=== PATIENT | male | born 1935 | race Caucasian/White ===

== ENCOUNTER → 2019-02-03 | Outpatient (CLI) | payer OTHER | LOC: SUPIMAGING 13:51 | PROVIDERS: ATTEND Registered Nurse | DX: R05 Cough (principal); I51.7 Cardiomegaly | CPT/HCPCS: 71046-PN ==

== ENCOUNTER 2019-02-09 10:23 | Inpatient (IN) | payer OTHER ==
[2019-02-09] MEDS ORDERED: NS 500 ML IV ONE (10:47)
--- NOTE | 2019-02-09 10:54 | EDPHY ---
H & P Stated Complaint: Irr HR x1wk, SOB, palps, lightheaded, cardiac Hx, sleeping upright Time Seen by Provider: 02/09/19 10:35 HPI/ROS: CHIEF COMPLAINT: Chest pounding HISTORY OF PRESENT ILLNESS: The patient is an 83-year-old man who comes to the emergency department complaining of about 1 week of chest pounding, shortness of breath and anxiety. He has a history of 4 vessel bypass in the 70s but no intervention since then. He initially denied history of atrial fibrillation but on chart review he had an episode in 2009 of atrial fibrillation and was cardioverted. He was on Coumadin for 4 weeks afterwards but was not on a long- term because he has not had any episodes of atrial fibrillation since then and has a history of chronic nose bleeds. He does report a history of frequent PVCs. No GI symptoms today. He does feel occasionally lightheaded. He also reports that he had a cough and cold last week and went to an urgent care over the weekend and was given a course of azithromycin and that this is when he felt like his chest pounding began. Severity: Moderate Modifying factors: None REVIEW OF SYSTEMS: Constitutional: denies: chills, fever, recent illness, recent injury EENTM: denies: blurred vision, double vision, nose congestion Respiratory: denies: cough, shortness of breath Cardiac: denies: chest pain, irregular heart rate, lightheadedness, palpitations Gastrointestinal/Abdominal: denies: abdominal pain, diarrhea, nausea, vomiting, blood streaked stools Genitourinary: denies: dysuria, frequency, hematuria, pain Musculoskeletal: denies: joint pain, muscle pain Skin: denies: lesions, rash, jaundice, bruising Neurological: denies: headache, numbness, paresthesia, tingling, dizziness, weakness Hematologic/Lymphatic: denies: blood clots, easy bleeding, easy bruising Immunologic/allergic: denies: HIV/AIDS, transplant 10 systems reviewed and negative except as noted EXAM: GENERAL: Well-appearing, well-nourished and in no acute distress. HEAD: Atraumatic, normocephalic. EYES: Pupils equal round and reactive to light, extraocular movements intact, sclera anicteric, conjunctiva are normal. ENT: TMs normal, nares patent, oropharynx clear without exudates. Moist mucous membranes. NECK: Normal range of motion, supple without lymphadenopathy or JVD. LUNGS: Breath sounds clear to auscultation bilaterally and equal. No wheezes rales or rhonchi. HEART: Irregular ABDOMEN: Soft, nontender, normoactive bowel sounds. No guarding, no rebound. No masses appreciated. BACK: No CVA tenderness, no spinal tenderness, step-offs or deformities EXTREMITIES: Normal range of motion, no pitting or edema. No clubbing or cyanosis. NEUROLOGICAL: Cranial nerves II through XII grossly intact. Normal speech, normal gait. 5/5 strength, normal movement in all extremities, normal sensation , normal reflexes PSYCH: Normal mood, normal affect. SKIN: Warm, dry, normal turgor, no visible rashes or lesions. Source: Patient, Family Exam Limitations: No limitations - Personal History Current Tetanus/Diphtheria Vaccine: Yes - Medical/Surgical History Hx Asthma: No Hx Chronic Respiratory Disease: No Hx Diabetes: No Hx Cardiac Disease: Yes Hx Renal Disease: No Hx Cirrhosis: No Hx Alcoholism: No Hx HIV/AIDS: No Hx Splenectomy or Spleen Trauma: No Other PMH: 2xMI, Bypass, no stents, R hip repl, - Family History Significant Family History: No pertinent family hx - Social History Smoking Status: Former smoker Alcohol Use: Sober Drug Use: None Constitutional: Initial Vital Signs Temperature (C) 36.5 C 02/09/19 10:30 Heart Rate 87 02/09/19 10:30 Respiratory Rate 18 02/09/19 10:30 Blood Pressure 146/85 H 02/09/19 10:30 O2 Sat (%) 97 02/09/19 10:30 O2 Delivery Mode Room Air Allergies/Adverse Reactions: Penicillins Allergy (Severe, Verified 02/09/19 11:49) Rash tetracycline [Tetracycline] Allergy (Mild, Verified 02/09/19 11:49) Rash pseudoephedrine [Pseudoephedrine] Allergy (Unknown, Verified 02/09/19 11:49) Other-Enter Comments cefuroxime axetil [From Ceftin] Allergy (Verified 02/09/19 11:49) Other-Enter Comments dextromethorphan [From Delsym] Allergy (Verified 02/09/19 11:50) Other-Enter Comments tramadol HCl [From Ultram] Allergy (Verified 02/09/19 11:49) Other-Enter Comments ZPACK Allergy (Uncoded 02/09/19 11:50) Other-Enter Comments Home Medications: Medication Instructions Recorded Allopurinol [Allopurinol 300 MG 300 mg PO DAILY 02/04/10 (RX)] Aspirin [Aspirin 81mg (*)] 81 mg PO DAILY 02/04/10 Herbals/Supplements -Info Only 1 ea PO DAILY 02/09/19 Losartan Potassium 100 mg PO DAILY18 02/09/19 Psyllium Husk (with Sugar) 1 - 2 each PO DAILY 02/09/19 [Metamucil Packet] Apixaban [Eliquis] 5 mg PO BID #60 tab 02/10/19 Atorvastatin Calcium [Lipitor 20 20 mg PO DAILY #30 tab 02/10/19 mg (*)] Medical Decision Making - Diagnostics EKG Interpretation: An EKG obtained and was read and documented in trace view. Please see trace view for full reading and report. 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 discussed the case with Dr. Banks who will admit. Patient on heparin. Will perform CT angio because of the slightly elevated D-dimer although his symptoms are more likely due to his atrial fibrillation. Differential Diagnosis: Partial list of the Differential diagnosis considered include but were not limited to; atrial fibrillation, frequent PVCs, and although unlikely based on the history and physical exam, I also considered acute coronary disease, pneumonia, pneumothorax, dissection, aneurysm. - Data Points Laboratory Results: Laboratory Results 02/09/19 10:56 02/09/19 10:56 Medications Given: Discontinued Medications Allopurinol (Allopurinol) 300 mg PO DAILY [facility] Stop: 08/09/19 08:59 Last Admin: 02/10/19 10:21 Dose: 300 mg Apixaban (Eliquis) 5 mg PO BID RNADAL Stop: 08/09/19 10:29 Last Admin: 02/10/19 11:17 Dose: 5 mg Aspirin (Aspirin) 81 mg PO DAILY [facility] Stop: 08/09/19 08:59 Last Admin: 02/10/19 10:21 Dose: 81 mg Atorvastatin Calcium (Lipitor) 20 mg PO DAILY [facility] Stop: 08/09/19 08:59 Last Admin: 02/10/19 10:21 Dose: 20 mg Heparin Sodium (Porcine) (Heparin Injection) 0 unit IVP EDNOW ONE Stop: 02/09/19 11:24 Last Admin: 02/09/19 12:14 Dose: 6,600 units Sodium Chloride (Ns) 500 mls @ 0 mls/hr IV EDNOW ONE; Wide Open PRN Reason: Protocol Stop: 02/09/19 10:48 Last Admin: 02/09/19 10:53 Dose: 500 mls Heparin Sodium (Porcine) (Heparin 50 Units/Ml (Premix)) 500 mls @ 0 mls/hr IV EDNOW ONE; Per Protocol PRN Reason: Protocol Stop: 02/09/19 11:24 Last Admin: 02/09/19 12:21 Dose: 500 mls Heparin Sodium (Porcine) (Heparin 50 Units/Ml (Premix)) 500 mls @ 0 mls/hr IV CONT RANDAL; Per Protocol PRN Reason: Protocol Stop: 08/08/19 19:59 Last Admin: 02/10/19 06:20 Dose: 500 mls Losartan Potassium (Cozaar) 100 mg PO DAILY@1800 [facility] Stop: 08/08/19 17:59 Last Admin: 02/09/19 18:46 Dose: 100 mg Psyllium Hydrophilic Mucilloid (Metamucil/Konsyl) 1 each PO DAILY [facility] Stop: 08/09/19 08:59 Last Admin: 02/10/19 10:22 Dose: 1 each Point of Care Test Results: Chemistry 02/09/19 10:52 POC Troponin I 0.05 ng/mL ng/mL (0.00-0.08) Departure - Departure Disposition: [facility] Acute Clinical Impression: Premature supraventricular beat Atrial fibrillation Qualifiers: Atrial fibrillation type: unspecified Qualified Code(s): I48.91 - Unspecified atrial fibrillation Condition: Serious
--- NOTE | 2019-02-09 10:55 | CPEKG ---
Test Reason : OPEN Blood Pressure : / mmHG Vent. Rate : 098 BPM Atrial Rate : 119 BPM P-R Int : 043 ms QRS Dur : 124 ms QT Int : 406 ms P-R-T Axes : 000 -39 193 degrees QTc Int : 519 ms Atrial fibrillation Ventricular premature complex Left bundle branch block Confirmed by Glenn Cárdenas ([id number]) on 02/09/2019 10:54:31 AM Referred By: Glenn Cárdenas Confirmed By:Glenn Cárdenas
[2019-02-09 11:06] LABS: PLATELET COUNT 175 10^3/uL (150-400)
[2019-02-09 11:17] LABS: INR 1.08 (0.83-1.16); PROTIME(PATIENT) 13.6 SEC (12.0-15.0)
[2019-02-09] MEDS ORDERED: HEPARIN/DEXTROSE 500 ML IV ONE (11:23)
[2019-02-09] MEDS ORDERED: HEPARIN 10,000 UNIT/10 ML MDV (1,000 UNIT/ML) IVP ONE (11:23)
[2019-02-09] MEDS ORDERED: IOPAMIDOL (ISOVUE 370) 100 ML BTL IV ONE (12:01)
[2019-02-09] MEDS ORDERED: ONDANSETRON 4 MG/2 ML VIAL IVP PRN (12:04)
[2019-02-09] MEDS ORDERED: ACETAMINOPHEN 325 MG TAB PO PRN (12:04)
[2019-02-09] MEDS ORDERED: ONDANSETRON DISINTEGRATING 4 MG TAB PO PRN (12:04)
--- NOTE | 2019-02-09 14:50 | ASMTCMCOM ---
CM Note CM Note Notes: Chart reviewed. Patient admitted via ED with c/o chest pounding. CT negative for PE. Normally lives independent with his . Likely cardiac workup. Needs to be determined at this time. Plan: TBD Date Signed: 02/09/2019 02:49 PM Electronically Signed By:Catie Arriaga RN
--- NOTE | 2019-02-09 16:31 | PDGENHP ---
History and Physical - Chief Complaint Palpitations, SOB, LH - History of Present Illness Nimesh Sandy is a 83 yo M with a PMHx of CAD s/p CABG in 1978, A Fib s/p DCCV in 2009, HTN, HD, T2DM, Gout who presents to [facility] for episodes of chest pounding , SOB, and LH. He reports that he within the past week he has had episode of feeling his heart pounding in his chest with associated SOB and LH. He denies any chest pain or discomfort. He notes that this sensation makes it hard for him to sleep and has been making him anxious. He recently had a URI for which he was prescribed Azithromycin and Delsym which resolved his URI and finished 4 days ago. He denies any n/v, d/c, f/c, edema, falls, LOC. History Information - Allergies/Home Medication List Allergies/Adverse Reactions: Penicillins Allergy (Severe, Verified 02/09/19 11:49) Rash tetracycline [Tetracycline] Allergy (Mild, Verified 02/09/19 11:49) Rash pseudoephedrine [Pseudoephedrine] Allergy (Unknown, Verified 02/09/19 11:49) Other-Enter Comments cefuroxime axetil [From Ceftin] Allergy (Verified 02/09/19 11:49) Other-Enter Comments dextromethorphan [From Delsym] Allergy (Verified 02/09/19 11:50) Other-Enter Comments tramadol HCl [From Ultram] Allergy (Verified 02/09/19 11:49) Other-Enter Comments ZPACK Allergy (Uncoded 02/09/19 11:50) Other-Enter Comments Home Medications: Allopurinol [Allopurinol 300 MG (RX)] 300 mg PO DAILY 02/04/10 [Last Taken 02/08] Aspirin [Aspirin 81mg (*)] 81 mg PO DAILY 02/04/10 [Last Taken 02/08/19] Simvastatin [Zocor] 40 mg PO DAILY18 02/04/10 [Last Taken 02/08/19] Herbals/Supplements -Info Only 1 ea PO DAILY 02/09/19 [Last Taken Unknown] Losartan Potassium 100 mg PO DAILY18 02/09/19 [Last Taken 02/08/19] Psyllium Husk (with Sugar) [Metamucil Packet] 1 - 2 each PO DAILY 02/09/19 [ Last Taken 02/08/19] I have personally reviewed and updated: family history, medical history, social history, surgical history - Past Medical History coronary artery disease, diabetes type 2, hypertension, hyperlipidemia - Surgical History Reports: coronary bypass surgery - Family History Positive for: non-pertinent - Social History Smoking Status: Former smoker Alcohol Use: Sober Drug Use: None Review of Systems Review of Systems: ROS: 10pt was reviewed & negative except for what was stated in HPI & below Physical Exam Physical Exam: Temp Pulse Resp BP Pulse Ox 36.8 C 75 18 130/79 H 95 02/09/19 16:00 02/09/19 16:00 02/09/19 16:00 02/09/19 16:00 02/09/19 16:00 Constitutional: no apparent distress Eyes: PERRL Ears, Nose, Mouth, Throat: moist mucous membranes Cardiovascular: irregularly irregular, No tachycardia, No edema Respiratory: no respiratory distress, clear to auscultation Gastrointestinal: soft, non-tender abdomen Skin: warm Musculoskeletal: full muscle strength Neurologic: AAOx3 Psychiatric: interacting appropriately Lab Data & Imaging Review 02/09/19 10:56 02/09/19 10:56 WBC 6.53 10^3/uL (3.80-9.50) 02/09/19 10:56 RBC 4.72 10^6/uL (4.40-6.38) 02/09/19 10:56 Hgb 15.3 g/dL (13.7-17.5) 02/09/19 10:56 Hct 44.7 % (40.0-51.0) 02/09/19 10:56 MCV 94.7 fL (81.5-99.8) 02/09/19 10:56 MCH 32.4 pg (27.9-34.1) 02/09/19 10:56 MCHC 34.2 g/dL (32.4-36.7) 02/09/19 10:56 RDW 13.8 % (11.5-15.2) 02/09/19 10:56 Plt Count 175 10^3/uL (150-400) 02/09/19 10:56 MPV 9.7 fL (8.7-11.7) 02/09/19 10:56 Neut % (Auto) 62.9 % (39.3-74.2) 02/09/19 10:56 Lymph % (Auto) 25.6 % (15.0-45.0) 02/09/19 10:56 [place] % (Auto) 9.0 % (4.5-13.0) 02/09/19 10:56 Eos % (Auto) 1.1 % (0.6-7.6) 02/09/19 10:56 Baso % (Auto) 0.9 % (0.3-1.7) 02/09/19 10:56 Nucleat RBC Rel Count 0.0 % (0.0-0.2) 02/09/19 10:56 Absolute Neuts (auto) 4.11 10^3/uL (1.70-6.50) 02/09/19 10:56 Absolute Lymphs (auto) 1.67 10^3/uL (1.00-3.00) 02/09/19 10:56 Absolute Monos (auto) 0.59 10^3/uL (0.30-0.80) 02/09/19 10:56 Absolute Eos (auto) 0.07 10^3/uL (0.03-0.40) 02/09/19 10:56 Absolute Basos (auto) 0.06 10^3/uL (0.02-0.10) 02/09/19 10:56 Absolute Nucleated RBC 0.00 10^3/uL (0-0.01) 02/09/19 10:56 Immature Gran % 0.5 % (0.0-1.1) 02/09/19 10:56 Immature Gran # 0.03 10^3/uL (0.00-0.10) 02/09/19 10:56 PT 13.6 SEC (12.0-15.0) 02/09/19 10:56 INR 1.08 (0.83-1.16) 02/09/19 10:56 APTT 33.8 SEC (23.0-38.0) 02/09/19 10:56 D-Dimer 0.86 ug/mLFEU (0.00-0.50) H 02/09/19 10:56 Sodium 141 mEq/L (135-145) 02/09/19 10:56 Potassium 4.6 mEq/L (3.5-5.2) 02/09/19 10:56 Chloride 106 mEq/L (97-110) 02/09/19 10:56 Carbon Dioxide 25 mEq/l (22-31) 02/09/19 10:56 Anion Gap 10 mEq/L (6-14) 02/09/19 10:56 BUN 22 mg/dL (7-23) 02/09/19 10:56 Creatinine 1.2 mg/dL (0.7-1.3) 02/09/19 10:56 Estimated GFR 58 02/09/19 10:56 Glucose 138 mg/dL (70-100) H 02/09/19 10:56 Calcium 9.5 mg/dL (8.5-10.4) 02/09/19 10:56 POC Troponin I 0.05 ng/mL (0.00-0.08) 02/09/19 10:52 Assessment & Plan Assessment: Atrial fibrillation (Acute) - Presents with chest pounding, SOB, LH - EKG on admission showing A Fib with multiple PVCs, HR 70-80's - Has hx of A Fib, s/p DCCV in 2009 was on Coumadin for 1 month, unsure when/ why taken off, does have hx of epistaxis during dry lala - Cardiology consulted on admission, recommend continued ischemic w/u with serial Troponin, TTE, and EP evaluation in the AM - Continue to monitor on telemetry - CHADsVASC is 5, started on Heparin gtt in the ED, will continue overnight to evaluate for bleeding, if none seen, transition to PO AC tomorrow - Also had CTA Chest to r/o PE which was negative given elevated D Dimer on admission Premature supraventricular beat (Acute) - Cardiology/EP consult as above HTN - Continue home Losartan Gout - Continue home Allopurinol CAD s/p CABG - Continue home ASA, Statin FEN: Cardiac Code: FULL DVT PPx: Heparin gtt Dispo: Admit to Observation
--- NOTE | 2019-02-09 16:53 | ECHO ---
[email or web address] [address] [address] Main: [phone] Echocardiography Examination Transthoracic Name: CHRIS MAURICIO MR#: [id number] Study Date: 02/09/2019 Study Time: 02:10 PM Date of : 1935 Age: 83 year(s) Height: 175.3 cm (69 in.) Weight: 84.82 kg (187 lb.) BSA: 2.01 m2 Gender: Male Examination: Echo Contrast: Image Quality: Adequate Rhythm: Heart Rate: 41 bpm BP: 158 mmHg/97 mmHg Indication: abnormal CTA chest with cardiomegaly Procedure Staff Referring Physician: Food Technology Teacher: Radha Domingo [facility] Reading Physician: Cristhian Flores MD Requesting Provider: Ordering Physician: Miguel Massey Indication: abnormal CTA chest with cardiomegaly Measurements Chambers AV/MV Label Value Normal Value Label Value Normal Value LVOT Vmax 0.64 m/s (0.7m/s - 1.1m/s) AR PHT 0.59 s LVOTd 2.5 cm (1.9cm - 2.1cm) AR PHT 592 ms LVDd, 2D 6.1 cm (4.2cm - 5.9cm) AR Vmax 3.76 m/s LVDs, 2D 5.4 cm (2.1cm - 4cm) AV PGmax 6 mmHg IVSd, 2D 1.5 cm (0.6cm - 1.1cm) AV Vmax 1.23 m/s LVPWd, 2D 0.9 cm (0.6cm - 1cm) GAMAL (Vmax) 2.6 cm2 LVEF, BP 28 % (55% - 70%) MV E Vmax 1.06 m/s LVEF, 2D 23 % (54% - 74%) MV E/E' lateral 16.3 RVDd, 2D 4.2 cm (1.9cm - 3.8cm) MV E/E' septal 28.4 (0.45 - 1.25) TAPSE 1.5 cm MV E' septal 0.04 m/s LA Volume, BP 102 ml (18ml - 58ml) MV VTI 11.1 cm LADs, 2D 4.7 cm (3cm - 4cm) MV PGmax 1 mmHg LAESV index, BP 50.7 ml/m2 MV PGmean 0 mmHg RA Area 20 cm2 MV Mary 3.3 cm Additional Vessels MR Vena Contracta 0.6 cm Label Value Normal Value MR Reg. Volume 37 ml AoAsc 4.1 cm MR Reg. Fraction 39 % AoRoot, 2D 4.1 cm (1.4cm - 2.6cm) MR Vmax 4.76 m/s MR VTI 162 cm Patient: CHRIS MAURICIO Study Date: 02/09/2019 Page 1 of 3 02:10 PM MR (ERO) 0.23 cm2 MV E' lateral 0.07 m/s MR PISA Radius 0.7 cm MV E/E' mean 19.27 MR PISA Alias V. 35.1 cm/s MV E' mean 0.06 m/s TV/PV Label Value Normal Value RA Pressure 15 mmHg RVSP 48 mmHg TR Pmax 33 mmHg TR Vmax 2.86 m/s PV PGmax 3 mmHg PV Vmax, Caliper 0.92 m/s (0.6m/s - 0.9m/s) Conclusions Overall Conclusions: No pericardial effusion. Severe reduction in LV systolic function with ejection fraction of 35%. Left ventricular hypertrophy. Decreased right ventricular systolic function. Moderate mitral regurgitation. Mild aortic regurgitation. Elevated right ventricular systolic pressure 48 mm of mercury with moderate tricuspid regurgitation. Ascending aortic dilatation at 4.1 cm. Findings Left Ventricle: Left ventricle is dilated. Moderately reduced systolic left ventricular function. EF evaluated by EF (biplane Moe's). The ejection fraction, measured by Simpsons method, is 28 %. EF range is estimated at 30 % - 35 %.The septal wall is moderately thickened without LVOT obstruction. The basal to mide inferior wall and inferolateral riggs are severly hypokinetic. Unable to assess Diastolic Dysfunction due to atrial fibrillation/a flutter. Right Ventricle: Dilated right ventricle. Right ventricular systolic function is mildly reduced. Left Atrium: The left atrium is severely dilated. Right Atrium: The right atrium is mildly dilated. Mitral Valve: Moderate mitral regurgitation. No mitral valve stenosis. There is mild mitral thickening. There is mitral annular calcification. Aortic Valve: The aortic valve is structurally normal and trileaflet. Mild aortic regurgitation is present. There is no aortic stenosis. Aortic leaflets exhibit mild calcification. Tricuspid Valve: Tricuspid valve leaflets are structurally normal. Moderate tricuspid regurgitation. No tricuspid valve stenosis. Right Ventricular systolic pressure is measured at 48 mmHg. Pulmonary artery pressure moderately increased. Pulmonic Valve: Pulmonic valve is poorly visualized. Aorta: The aortic root size in 2D measures 4.1 cm. The aortic root exhibits mild dilatation. The ascending aorta measures 4.1 cm. Mild dilatation of the ascending aorta. Aorta Measurements AoRoot, 2D is 4.1 cm. IVC: Patient: CHRIS MAURICIO Study Date: 02/09/2019 Page 2 of 3 02:10 PM The inferior vena cava is dilated. There is no inspiratory collapse of the IVC. Pericardium: No pericardial effusion. Exam Details Procedure Ordered: Echo Procedure Status: Routine study Image Quality: Adequate Facility Location: Cardiac Echo 1 (No Signature Object) Patient: CHRIS MAURICIO Study Date: 02/09/2019 Page 3 of 3 02:10 PM [id number]
[2019-02-09] MEDS ORDERED: LOSARTAN POTASSIUM 50 MG TAB PO SCH (18:00)
--- NOTE | 2019-02-09 19:19 | GCON ---
[f rep st] CONSULTATION CARDIAC CONSULTATION DATE OF CONSULTATION: 02/09/2019 CHIEF COMPLAINT: Shortness of breath, lightheadedness. HISTORY OF PRESENT ILLNESS: This is an 83-year-old gentleman who is followed at the [facility] and Dr. Salvador. He has a history of coronary disease dating back to 1978 when he had a 4-vessel bypass at [facility]. Since that time, he has had no further ischemic interve ntion. In 2009, he apparently had atrial fibrillation and was cardioverted. He was on Coumadin for 4 weeks, and then this was discontinued. He was followed by Cardiology in [place], last seen 6 to 8 w eeks ago and apparently was told he "may need a pacemaker." He, however, has not been feeling poorly from a cardiac standpoint in that he has no chest pain, no exertional shortness of breath. He has c hronic palpitations, which he thinks are chronic PVCs. Over the last few days, he had a URI and was taking some decongestants and has been having more "anxiety and difficult sleeping." No syncope, no angina, no PND, no orthopnea. He comes in today. His EKG shows atrial fibrillation with fairly cont rolled rate. He had negative cardiac enzymes on 1st draw, and otherwise he is feeling better at this time. He is admitted for observation and for workup of his atrial fibrillation, shortness of breath . An echocardiogram is pending. REVIEW OF SYSTEMS: Negative except for within the HPI. PAST HISTORY: Includes remote bypass and hip replacement. No recent significant medical history. ALLERGIES: Include penicillin, tetracycline, pseudoephedrine, Ceftin, desomorphine, Z-Pac, and trama dol. HOME MEDICATIONS: Include allopurinol, aspirin, simvastatin, losartan. PHYSICAL EXAMINATION: VITAL SIGNS: Blood pressure is 140/86, heart rate is 100 in atrial fibrillati on. GENERAL: He is an elderly male who is alert and oriented in no acute distress. MOUTH: Orophar ynx is moist. NECK: Supple. BACK: CVA and chest wall without palpable tenderness. LUNGS: Clear to auscultation. CARDIOVASCULAR: Regular rate and rhythm with a soft systolic murmur. No JVP. ABDO MEN: Soft, nontender. Normoactive bowel sounds. MUSCULOSKELETAL: No cyanosis, clubbing, or edema. LABS: Potassium 4.6, creatinine 1.2. Troponin 0.05. White count 6, hemoglobin 15. EKG shows atrial fibrillation without ischemic changes, frequent unifocal PVCs. ASSESSMENT: Atrial fibrillation. Unknown chronicity. Patient was on Coumadin many years ago, but n othing recently. He does have a history of nosebleeds, but apparently has not been told he needed _ by his mat roller in [facility]. He is not having any syncope. He cannot state when this "atrial fibrillation" began. It is not similar to his prior atrial fibrillati on. He thinks his symptoms of anxiety and sleeplessness began after the desomorphine that he has josue en for an upper respiratory infection. He has no paroxysmal nocturnal dyspnea, orthopnea. No anginal equivalent. PLAN: 1. IV heparin. 2. Echocardiogram. 3. Rule out myocardial infarction. 4. Consider long-term anticoagulation. 5. Depending on his clinical course, either cardioversion or rate control strategy can be considered . Would like to see if possibly this is paroxysmal with observation. There is no need for cardiover mayo at this point in time as he is comfortable, stable and this atrial fibrillation may, in fact, be chronic. 6. "May need a pacemaker" by a mat roller in [place] although, at this time, I do not see any indic ation of that need. 7. Many questions answered. /[id number]/MODL
[2019-02-09] MEDS ORDERED: HEPARIN 10,000 UNIT/10 ML MDV (1,000 UNIT/ML) IVP PRN (19:52)
[2019-02-09] MEDS ORDERED: HEPARIN/DEXTROSE 500 ML IV SCH (20:00)
[2019-02-10] MEDS ORDERED: ATORVASTATIN CALCIUM 20 MG TAB PO SCH (09:00)
[2019-02-10] MEDS ORDERED: PSYLLIUM METAMUCIL 1 PKT PO SCH (09:00)
[2019-02-10] MEDS ORDERED: ASPIRIN 81 MG CHEWABLE TAB PO SCH (09:00)
[2019-02-10] MEDS ORDERED: ALLOPURINOL 300 MG TAB PO SCH (09:00)
--- NOTE | 2019-02-10 10:29 | PDCARPN ---
Cardiology Progress Note Assessment/Plan: Assessment: 1. Ischemic cardiomyopathy LV ejection fraction 35%. Prior CABG 2. Atrial fibrillation, unknown duration, likely 1 week in duration. Prior cardioversion in 2009 3. Recent upper respiratory illness 4. Frequent PVCs 5. Moderate mitral regurgitation. Plan: 1. Chads Vasc score 4. Needs long-term anticoagulation. Eliquis 5 mg twice daily started. Heparin will be discontinued. 2. Patient reports no symptoms similar to he is prior coronary events. With previous events, he had arm pain. Today denies any chest pain, arm pain, neck pain. 3. I offered cardioversion either later today or tomorrow morning. We discussed that cardioversion will convert him to sinus rhythm but he may not maintain sinus rhythm because of moderate mitral regurgitation. He does not want to have a cardioversion procedure either today or tomorrow. He would like to discuss with his student services rep Dr. Manuel Savage prior to making a decision. If he decides to have a cardioversion here, he has our office number and will call my nurse to schedule for next week, otherwise he will have the procedure done at [facility] in [place] 4. Troponins are mildly elevated at 0.04. Would like to keep him in the hospital for 1 more day and check serial troponins to confirm downward trend. 02/10/19 10:30 Subjective: Feels well, still has "nervous feeling" in chest Time Spent with Patient: greater than 35 minutes Time Spent with Patient: Greater than 35 minutes spent on this patients care, greater than 50% of time spent counseling, educating, and coordinating care regarding the above mentioned plan. Objective: Vital Signs (8 Hrs) Temp Pulse Resp BP Pulse Ox 02/10/19 07:42 36.6 C 73 18 112/73 95 02/10/19 04:00 36.6 C 76 16 120/74 96 Intake/Output (24 Hrs) 02/08/19 02/09/19 02/10/19 11:59 11:59 11:59 Intake Total 837 Balance 837 Intake: Oral (ml) 480 IV Infused (ml) 357 Heparin/Dextrose 500 ml @ 357 Per Protocol IV CONT RANDAL Rx#:[id number] Other: Weight 85 kg Number of Voids Toilet 2 Result Diagrams: 02/09/19 10:56 02/09/19 10:56 Cardiac Labs: Cardiac Lab Results (72 Hrs) 02/10/19 02/09/19 03:20 18:45 Troponin I 0.040 H 0.033 Telemetry: AFIB with frequent PVC ICD10 Worksheet Patient Problems: Problems Problem Status Onset Atrial fibrillation Acute Premature supraventricular beat Acute
[2019-02-10] MEDS ORDERED: APIXABAN 5 MG TAB PO SCH (10:30)
[2019-02-10 11:44] VITALS: BP 125/89
--- NOTE | 2019-02-10 12:32 | HOSPPROG ---
Hospitalist Progress Note Assessment/Plan: Atrial fibrillation (Acute) - Presents with chest pounding, SOB, LH - EKG on admission showing A Fib with multiple PVCs, HR 70-80's - Has hx of A Fib, s/p DCCV in 2009 was on Coumadin for 1 month, unsure when/ why taken off, does have hx of epistaxis during dry lala - Cardiology consulted recommend cardioversion but patient would like to discuss with curator herbarium Dr. Manuel Savage before, also recommend continued ischemic w/u with serial Troponin overnight - Continue to monitor on telemetry - CHADsVASC is 5, started on Heparin gtt in the ED, will transition to PO Eliquis this afternoon - Also had CTA Chest to r/o PE which was negative given elevated D Dimer on admission Elevated Troponin - Trop trended overnight elevated to 0.04 - Cardiology following, recommend serial Troponins to ensure downtrend Systolic CHF - TTE from 02/08 showing EF 35%, decreased right ventricular systolic function, mod MR, increased RVSP, hypokinetic basal to inferior wall - In setting of known CAD s/p CABG and ME - Cardiology following, serial Troponins due to mild elevation as above - Already on Losartan, will discuss with cardiology about started B-Elisabet prior to d/c Premature supraventricular beat (Acute) - Cardiology/EP consult as above HTN - Continue home Losartan Gout - Continue home Allopurinol CAD s/p CABG - Continue home ASA, Statin FEN: Cardiac Code: FULL DVT PPx: Heparin gtt Dispo: Pending clinical course Subjective: Pt reports no complaints this AM Objective: Vital Signs Temp Pulse Resp BP Pulse Ox 36.6 C 67 18 125/89 H 94 02/10/19 11:43 02/10/19 11:43 02/10/19 11:43 02/10/19 11:43 02/10/19 11:43 02/09/19 02/10/19 02/11/19 05:59 05:59 05:59 Intake Total 837 Balance 837 PT 13.6 SEC (12.0-15.0) 02/09/19 10:56 INR 1.08 (0.83-1.16) 02/09/19 10:56 - Physical Exam Constitutional: no apparent distress Eyes: PERRL Ears, Nose, Mouth, Throat: moist mucous membranes Cardiovascular: irregularly irregular, No tachycardia, No edema Respiratory: no respiratory distress Gastrointestinal: soft, non-tender abdomen Genitourinary: No fraser in urethra Skin: warm Musculoskeletal: full muscle strength Neurologic: AAOx3 Psychiatric: interacting appropriately ICD10 Worksheet Patient Problems: Problems Problem Status Onset Atrial fibrillation Acute Premature supraventricular beat Acute
--- NOTE | 2019-02-10 13:30 | PDMN ---
Medical Necessity Medical necessity: Change to IP, as of 02/10/19, per MD & MCG [id number]; los >2 mn for ongoing management of acute afib w/elevated troponin, systolic CHF & premature supraventricular beat; requiring further cardiac monitoring, Cardiology consult w/possible cardioversion, med management & serial troponins; hx recent URI, CAD s/p CABG
--- NOTE | 2019-02-10 13:42 | PDDCSUM ---
Discharge Summary Discharge Summary: Date of Admission: 02/09/2019 Date of Discharge: 02/10/2019 Consults: Cardiology Procedures: TTE Followup: Cardiology Hospital Course Problem List: Atrial fibrillation (Acute) - Presents with chest pounding, SOB, LH - EKG on admission showing A Fib with multiple PVCs, HR 70-80's - Has hx of A Fib, s/p DCCV in 2009 was on Coumadin for 1 month, unsure when/ why taken off, does have hx of epistaxis during dry lala - Cardiology consulted recommend cardioversion but patient would like to discuss with qa tester Dr. Manuel Savage prior to procedure, will do this as outpatient - Continue to monitor on telemetry - CHADsVASC is 5, started on Heparin gtt in the ED, transitioned to PO Eliquis for discharge - Also had CTA Chest to r/o PE which was negative given elevated D Dimer on admission Elevated Troponin - Trop trended overnight elevated to 0.04, repeat this afternoon trended back down to normal, 0.026 - Cardiology following, recommend MPS as outpatient Systolic CHF - TTE from 02/08 showing EF 35%, decreased right ventricular systolic function, mod MR, increased RVSP, hypokinetic basal to inferior wall - In setting of known CAD s/p CABG and CT - Cardiology following, serial Troponins due to mild elevation as above - Already on Losartan, defer to cardiology about starting B-Elisabet as outpatient Premature supraventricular beat (Acute) - Cardiology/EP consult as above HTN - Continue home Losartan Gout - Continue home Allopurinol CAD s/p CABG - Continue home ASA, Statin
--- NOTE | 2019-02-10 14:02 | ASMTDCNOTE ---
Case Management Discharge Discharge Order Complete? Answers: Yes Transportation Arranged Answers: Family/Friends Family Notified Answers: Yes Notes: Discharge Comments Notes: Pt is being discharged to home today with his Cammie who will drive him home. He does not need any home services or any other CM support. Date Signed: 02/10/2019 02:02 PM Electronically Signed By:Reyna Fleming
--- NOTE | 2019-02-10 14:05 | ASDISCHSUM ---
Discharge Information Plan Status:Home with No Needs Medically Cleared to Leave: Discharge Date: D/C Disposition: ADT D/C Disposition: Projected Discharge Date: Transportation at D/C: Discharge Delay Reason: Follow-Up Date: Discharge Slot: Final Diagnosis: Placement Information Patient Contact Information Contact Name:MARC Relationship: Address:[address] City:[place] Alternate Phone: State/Zip Code:[place] [address] Email: Financial Information Financial Class:Medicare Primary Plan Desc:MEDICARE OUTPATIENT Primary Plan Number:[id number] Secondary Plan Desc:LUIS HAIRSTON O [employer] [employer] Secondary Plan Number:[id number] Assessment Information [facility] CM Progress Note CM Note CM Note Notes: Chart reviewed. Patient admitted via ED with c/o chest pounding. CT negative for PE. Normally lives independent with his . Likely cardiac workup. Needs to be determined at this time. Plan: TBD Date Signed: 02/09/2019 02:49 PM Electronically Signed By:Catie Arriaga RN Case Management Discharge Plan Note Case Management Discharge Discharge Order Complete? Answers: Yes Transportation Arranged Answers: Family/Friends Family Notified Answers: Yes Notes: Discharge Comments Notes: Pt is being discharged to home today with his Cammie who will drive him home. He does not need any home services or any other CM support. Date Signed: 02/10/2019 02:02 PM Electronically Signed By:Reyna Fleming LACE LACE Length of stay for Answers: 1 day current admission Acuity / Level of Answers: Yes Care: Did the patient have an inpatient admission? Comorbidities - select Answers: Coronary Artery Disease all that apply Score: 6 Date Signed: 02/10/2019 02:04 PM Electronically Signed By:Reyna Toth.RN Intervention Information
== END 2019-02-10 16:02 | disposition home or self-care (01) | DRG 309 ==
LOC: F2W 13:13 → OBSVTOIN 02-10 12:38
PROVIDERS: ADMIT Internal Medicine; ATTEND Internal Medicine
DX: I48.91 Unspecified atrial fibrillation (principal); I11.0 Hypertensive heart disease with heart failure; I50.20 Unspecified systolic (congestive) heart failure; I25.10 Atherosclerotic heart disease of native coronary artery without angina pectoris; E11.9 Type 2 diabetes mellitus without complications; E78.5 Hyperlipidemia, unspecified; M10.9 Gout, unspecified; I34.0 Nonrheumatic mitral (valve) insufficiency; I49.3 Ventricular premature depolarization; I25.2 Old myocardial infarction; Z95.1 Presence of aortocoronary bypass graft; Z96.641 Presence of right artificial hip joint; Z87.891 Personal history of nicotine dependence
CPT/HCPCS: 84484-ER; 85520-90; 96365; 97161-GP; G0378; J1644; Q9967

== ENCOUNTER 2019-02-10 20:48 | Observation (INO) | payer OTHER ==
[2019-02-10] MEDS ORDERED: NS 500 ML IV ONE (21:11)
--- NOTE | 2019-02-10 21:12 | EDPHY ---
H & P Time Seen by Provider: 02/10/19 21:09 HPI/ROS: CHIEF COMPLAINT: Palpitations HISTORY OF PRESENT ILLNESS: The patient is an 83-year-old man who comes to the emergency department complaining of palpitations. I admitted him yesterday for atrial fibrillation with frequent PVCs. He was seen by Dr. Jacobo and they recommended cardioversion but the patient wanted to talk to his all round butcher in [address] He was discharged this afternoon on Eliquis. However few hours after getting home he began having palpitations again and decided to come back to the hospital to try and get cardioverted here. He denies pain. He denies shortness of breath. No recent fevers or illness. Severity: Moderate Modifying factors: None REVIEW OF SYSTEMS: Constitutional: denies: chills, fever, recent illness, recent injury EENTM: denies: blurred vision, double vision, nose congestion Respiratory: denies: cough, shortness of breath Cardiac: See HPI denies: chest pain, irregular heart rate, lightheadedness, Gastrointestinal/Abdominal: denies: abdominal pain, diarrhea, nausea, vomiting, blood streaked stools Genitourinary: denies: dysuria, frequency, hematuria, pain Musculoskeletal: denies: joint pain, muscle pain Skin: denies: lesions, rash, jaundice, bruising Neurological: denies: headache, numbness, paresthesia, tingling, dizziness, weakness Hematologic/Lymphatic: denies: blood clots, easy bleeding, easy bruising Immunologic/allergic: denies: HIV/AIDS, transplant 10 systems reviewed and negative except as noted EXAM: GENERAL: Well-appearing, well-nourished and in no acute distress. HEAD: Atraumatic, normocephalic. EYES: Pupils equal round and reactive to light, extraocular movements intact, sclera anicteric, conjunctiva are normal. ENT: TMs normal, nares patent, oropharynx clear without exudates. Moist mucous membranes. NECK: Normal range of motion, supple without lymphadenopathy or JVD. LUNGS: Breath sounds clear to auscultation bilaterally and equal. No wheezes rales or rhonchi. HEART: Irregular, no murmurs, rubs or gallops. ABDOMEN: Soft, nontender, BACK: No CVA tenderness, no spinal tenderness, step-offs or deformities EXTREMITIES: Normal range of motion, no pitting or edema. No clubbing or cyanosis. NEUROLOGICAL: Cranial nerves II through XII grossly intact. Normal speech, normal gait. 5/5 strength, normal movement in all extremities, normal sensation , PSYCH: Normal mood, normal affect. SKIN: Warm, dry, normal turgor, no visible rashes or lesions. Source: Patient Exam Limitations: No limitations - Medical/Surgical History Hx Asthma: No Hx Chronic Respiratory Disease: No Hx Diabetes: No Hx Cardiac Disease: Yes Hx Renal Disease: No Hx Cirrhosis: No Hx Alcoholism: No Hx HIV/AIDS: No Hx Splenectomy or Spleen Trauma: No Other PMH: Paroxysmal AFib, 2xMI, Bypass, no stents, R hip repl, - Family History Significant Family History: No pertinent family hx - Social History Smoking Status: Former smoker Alcohol Use: Sober Drug Use: None Constitutional: Initial Vital Signs Temperature (C) 36.5 C 02/10/19 21:16 Heart Rate 77 02/10/19 21:16 Respiratory Rate 16 02/10/19 21:16 Blood Pressure 129/77 H 02/10/19 21:16 O2 Sat (%) 98 02/10/19 21:16 O2 Delivery Mode Room Air Allergies/Adverse Reactions: Penicillins Allergy (Severe, Verified 02/10/19 21:19) Rash tetracycline [Tetracycline] Allergy (Mild, Verified 02/10/19 21:19) Rash pseudoephedrine [Pseudoephedrine] Allergy (Unknown, Verified 02/10/19 21:19) Other-Enter Comments cefuroxime axetil [From Ceftin] Allergy (Verified 02/10/19 21:19) Other-Enter Comments dextromethorphan [From Delsym] Allergy (Verified 02/10/19 21:19) Other-Enter Comments tramadol HCl [From Ultram] Allergy (Verified 02/10/19 21:19) Other-Enter Comments ZPACK Allergy (Uncoded 02/10/19 21:19) Other-Enter Comments Home Medications: Medication Instructions Recorded Allopurinol [Allopurinol 300 MG 300 mg PO DAILY 02/04/10 (RX)] Aspirin [Aspirin 81mg (*)] 81 mg PO DAILY 02/04/10 Losartan Potassium 100 mg PO DAILY 02/09/19 Psyllium Husk (with Sugar) 1 - 2 each PO DAILY PRN 02/09/19 [Metamucil Packet] Apixaban [Eliquis] 5 mg PO BID #60 tab 02/10/19 Atorvastatin Calcium [Lipitor 20 20 mg PO DAILY 02/10/19 mg (*)] Medical Decision Making - Diagnostics EKG Interpretation: An EKG obtained and was read and documented in trace view. Please see trace view for full reading and report. Atrial fibrillation with multiple PVCs. Similar to previous ED Course/Re-evaluation: Discussed the case with Dr. Damon who will readmit. Differential Diagnosis: Partial list of the Differential diagnosis considered include but were not limited to; atrial fibrillation, PVC, anxiety and although unlikely based on the history and physical exam, I also considered acute coronary disease, PE. - Data Points Medications Given: Discontinued Medications Sodium Chloride (Ns) 500 mls @ 0 mls/hr IV EDNOW ONE; Wide Open PRN Reason: Protocol Stop: 02/10/19 21:12 Last Admin: 02/10/19 21:30 Dose: 500 mls Departure - Departure Disposition: [facility] Inpatient Acute Clinical Impression: Premature supraventricular beat Atrial fibrillation Qualifiers: Atrial fibrillation type: paroxysmal Qualified Code(s): I48.0 - Paroxysmal atrial fibrillation Condition: Fair
[2019-02-10 21:43] LABS: INR 1.17 (0.83-1.16); PROTIME(PATIENT) 14.4 SEC (12.0-15.0)
[2019-02-10] MEDS ORDERED: ACETAMINOPHEN 325 MG TAB PO PRN (22:24)
[2019-02-10] MEDS ORDERED: ONDANSETRON 4 MG/2 ML VIAL IVP PRN (22:24)
[2019-02-10] MEDS ORDERED: ONDANSETRON DISINTEGRATING 4 MG TAB PO PRN (22:24)
--- NOTE | 2019-02-10 23:16 | PDGENHP ---
History and Physical - Chief Complaint anxiety, palpitations - History of Present Illness Source - Patient provides history and appears reliable. EMR reviewed and case discussed with accepting hospitalist. HPI - Pleasant 83 yo M with pmhx significant for CAD s/p CABG, afib with history of cardioversion, gout, DM II, HTN, HLD ischemic cardiomyopathy (EF 35% 01/2019), moderate MR who presents to the ED today with c/o palpitations and anxiety. Patient was admitted yesterday for episode of symptomatic afib. He was started on heparin gtt with transition to eliquis and evaluated by cardiology. Cardioversion was recommended however patient elected to follow up with his camera operator. He was discharged home approximately 3pm and this evening after 8 pm patient reports he was sitting in bed reading similarly to yesterday before his admission when he developed anxiety, palpitations. This evening patient did not experience severity of symptoms as he denies any SOB or lightheadedness. No chest pain/pressure. Denies any nausea/vomiting/fever or chills. He did recently have URI symptoms (completely resolved) 5 days ago and completed course of azithromycin. Patient became concerned for recurrence of symptoms and has reconsidered cardioversion. Patient rate currently controlled. He previously has been on metoprolol for rate control. this was discontinued less than 1 year ago due to bradycardia. Many years ago patient was on diltiazem. History Information - Allergies/Home Medication List Allergies/Adverse Reactions: Penicillins Allergy (Severe, Verified 02/10/19 21:19) Rash tetracycline [Tetracycline] Allergy (Mild, Verified 02/10/19 21:19) Rash pseudoephedrine [Pseudoephedrine] Allergy (Unknown, Verified 02/10/19 21:19) Other-Enter Comments cefuroxime axetil [From Ceftin] Allergy (Verified 02/10/19 21:19) Other-Enter Comments dextromethorphan [From Delsym] Allergy (Verified 02/10/19 21:19) Other-Enter Comments tramadol HCl [From Ultram] Allergy (Verified 02/10/19 21:19) Other-Enter Comments ZPACK Allergy (Uncoded 02/10/19 21:19) Other-Enter Comments Home Medications: Allopurinol [Allopurinol 300 MG (RX)] 300 mg PO DAILY 02/04/10 [Last Taken 02/10] Aspirin [Aspirin 81mg (*)] 81 mg PO DAILY 02/04/10 [Last Taken 02/10/19] Losartan Potassium 100 mg PO DAILY 02/09/19 [Last Taken 02/10/19] Psyllium Husk (with Sugar) [Metamucil Packet] 1 - 2 each PO DAILY PRN 02/09/19 [ Last Taken 02/10/19] Atorvastatin Calcium [Lipitor 20 mg (*)] 20 mg PO DAILY 02/10/19 [Last Taken ] I have personally reviewed and updated: family history, medical history, social history, surgical history - Past Medical History atrial fibrillation (with history of cardioversion 2009), coronary artery disease (1978), diabetes type 2, hypertension, hyperlipidemia Additional medical history: gout - Surgical History Reports: coronary bypass surgery Additional surgical history: cataract extraction with lens placement - Family History Positive for: CAD (multiple family members mother, father and maternal aunts/ uncles) - Social History Smoking Status: Former smoker Alcohol Use: None Drug Use: None Additional social history: Patient is and lives with of 70+ years. COR - FULL. Review of Systems Review of Systems: ROS: 10pt was reviewed & negative except for what was stated in HPI & below Constitutional: Denies: chills, fever Cardiac: Reports: palpitations. Denies: lightheadedness Physical Exam Physical Exam: Temp Pulse Resp BP Pulse Ox 36.5 C 77 16 129/77 H 98 02/10/19 21:16 02/10/19 21:16 02/10/19 21:16 02/10/19 21:16 02/10/19 21:16 Constitutional: no apparent distress, appears nourished, not in pain, other ( NAD. pleasant adult male resting comfortably in bed. ) Eyes: PERRL (lens reflex appreciated bilaterally. ), anicteric sclera, EOMI, No scleral injection Ears, Nose, Mouth, Throat: moist mucous membranes, No poor dentition Cardiovascular: irregularly irregular, pulses symmetric bilaterally, other ( rate 80s), No edema Peripheral Pulses: 2+: dorsalis-pedis (R), dorsalis-pedis (L) Respiratory: no respiratory distress, no rales or rhonchi, clear to auscultation , No inspiratory crackles Gastrointestinal: normoactive bowel sounds, soft, non-tender abdomen, no palpable masses, No distension Genitourinary: no bladder tenderness, No fraser in urethra Skin: warm, normal color, no rashes or abrasions Musculoskeletal: full muscle strength (grossly normal strength. moves all extremities while laying in bed. ) Neurologic: AAOx3, sensation intact bilaterally, No facial droop Psychiatric: interacting appropriately, No suicidal ideation Lab Data & Imaging Review PT 14.4 SEC (12.0-15.0) 02/10/19 21:24 INR 1.17 (0.83-1.16) H 02/10/19 21:24 APTT 24.8 SEC (23.0-38.0) 02/10/19 21:24 POC Troponin I 0.05 ng/mL (0.00-0.08) 02/10/19 21:28 Selected Entries 02/10/19 21:16 Blood Pressure Automatic Method Heart Rate 77 Respiratory 16 Rate O2 Sat (%) 98 Temperature (C) 36.5 C Blood Pressure 129/77 H Mean Arterial 94 Pressure (MAP) O2 Delivery Room Air Mode Temperature Oral Source Laboratory Tests 02/09/19 02/09/19 02/09/19 10:52 10:56 10:56 WBC 6.53 RBC 4.72 Hgb 15.3 Hct 44.7 MCV 94.7 MCH 32.4 MCHC 34.2 RDW 13.8 Plt Count 175 MPV 9.7 Neut % (Auto) 62.9 Lymph % (Auto) 25.6 Lynn % (Auto) 9.0 Eos % (Auto) 1.1 Baso % (Auto) 0.9 Nucleat RBC Rel Count 0.0 Absolute Neuts (auto) 4.11 Absolute Lymphs (auto) 1.67 Absolute Monos (auto) 0.59 Absolute Eos (auto) 0.07 Absolute Basos (auto) 0.06 Absolute Nucleated RBC 0.00 Immature Gran % 0.5 Immature Gran # 0.03 PT INR APTT D-Dimer Heparin Anti-Xa, Unfract Sodium 141 Potassium 4.6 Chloride 106 Carbon Dioxide 25 Anion Gap 10 BUN 22 Creatinine 1.2 Estimated GFR 58 Glucose 138 H Calcium 9.5 POC Troponin I 0.05 Troponin I 02/09/19 02/09/19 02/09/19 10:56 18:45 18:45 WBC RBC Hgb Hct MCV MCH MCHC RDW Plt Count MPV Neut % (Auto) Lymph % (Auto) Lynn % (Auto) Eos % (Auto) Baso % (Auto) Nucleat RBC Rel Count Absolute Neuts (auto) Absolute Lymphs (auto) Absolute Monos (auto) Absolute Eos (auto) Absolute Basos (auto) Absolute Nucleated RBC Immature Gran % Immature Gran # PT 13.6 INR 1.08 APTT 33.8 D-Dimer 0.86 H Heparin Anti-Xa, Unfract 0.60 Sodium Potassium Chloride Carbon Dioxide Anion Gap BUN Creatinine Estimated GFR Glucose Calcium POC Troponin I Troponin I 0.033 02/10/19 02/10/19 02/10/19 03:20 12:40 21:28 WBC RBC Hgb Hct MCV MCH MCHC RDW Plt Count MPV Neut % (Auto) Lymph % (Auto) Lynn % (Auto) Eos % (Auto) Baso % (Auto) Nucleat RBC Rel Count Absolute Neuts (auto) Absolute Lymphs (auto) Absolute Monos (auto) Absolute Eos (auto) Absolute Basos (auto) Absolute Nucleated RBC Immature Gran % Immature Gran # PT INR APTT D-Dimer Heparin Anti-Xa, Unfract 0.44 Sodium Potassium Chloride Carbon Dioxide Anion Gap BUN Creatinine Estimated GFR Glucose Calcium POC Troponin I 0.05 Troponin I 0.026 EKG additional interpertation: Afib 80s PVCs, LBBB. unchanged from 02/09/19 Assessment & Plan Assessment: Pleasant 83 yo M with pmhx significant for CAD s/p CABG, afib with history of cardioversion, gout, DM II, HTN, HLD ischemic cardiomyopathy (EF 35% 01/2019), moderate MR who presents to the ED today with c/o palpitations and anxiety. #Atrial fibrillation - rate controlled. cardiology consult in AM with Dr. Jacobo for evaluation of cardioversion. NPO after midnight. eliquis tonight. Hold on rate control at this time v rate 80s. hx of bradycardia 50s with metoprolol previously. consider cardizem if needed. #CAD - o/p stress recommended #ischemic cardiomyopathy (EF 35%) - NPO after midnight. SLIV. #Premature supraventricular beat #mitral regurgitation chronic medical issues #DM II - diet controlled. pt will be NPO after midnight. #HLD - statin #benign essential HTN - losartan #gout - allopurinol FEN - SLIV. cardiac diet then NPO after midnight. electrolytes adequate. PPX - SCDs. eliquis dose now. COR - FULL. Dispo - Patient admitted to observation on PCU pending cardiology recs.
[2019-02-10] MEDS: APIXABAN 5 MG TAB PO SCH (23:31)
--- NOTE | 2019-02-11 08:35 | PDCARPN ---
Cardiology Progress Note Assessment/Plan: Assessment: 1. Ischemic cardiomyopathy status post CABG 2. Atrial fibrillation with controlled ventricular response, symptomatic 3. PVCs Plan: 1. Started on Eliquis, reiterated that this should continue for life 2. SANDY guided cardioversion this morning 3. Post cardioversion, will need evaluation for coronary artery disease with myocardial perfusion stress test, has history of CABG and PCI 4. Re-evaluate LV ejection fraction once in normal sinus rhythm for 2+ weeks. If LV EF remains 35% or less, is a candidate for an ICD placement. 02/11/19 08:34 Subjective: He got discharged and readmitted with symptoms similar to initial admission. He is now requesting SANYD and cardioversion procedure be done here instead of the original request that the procedure be done with his hub borer at [facility]. Reviewed/Discussed With: hospitalist Time Spent with Patient: greater than 25 minutes Time Spent with Patient: Greater than 25 minutes spent on this patients care, greater than 50% of time spent counseling, educating, and coordinating care regarding the above mentioned plan. Objective: Vital Signs (8 Hrs) Temp Pulse Resp BP Pulse Ox 02/11/19 06:57 36.6 C 74 16 125/81 H 96 02/11/19 02:33 36.3 C 88 16 141/90 H 96 Intake/Output (24 Hrs) 02/09/19 02/10/19 02/11/19 11:59 11:59 11:59 Intake Total 700 Output Total 500 Balance 200 Intake: Oral (ml) 200 IV Infused (ml) 500 Output: Urine (ml) 500 Urinal 500 Other: Weight 85.6 kg Number of Voids Urinal 2 Number of Stools Toilet 1 Telemetry: Atrial fibrillation, PVCs. Echocardiogram: See full report, LVEF 35%, moderate mitral regurgitation. ICD10 Worksheet Patient Problems: Problems Problem Status Onset Atrial fibrillation Acute Premature supraventricular beat Acute
[2019-02-11] MEDS ORDERED: LIDOCAINE 2% 5 ML SDV ONE (08:37)
[2019-02-11] MEDS ORDERED: PROPOFOL 200 MG/20 ML VIAL ONE ×2 (08:37)
--- NOTE | 2019-02-11 08:49 | PDANEPAE ---
ANE History of Present Illness ancelmo/cv ANE Past Medical History - Cardiovascular History Hx Hypertension: Yes Hx Arrhythmias: Yes Hx Chest Pain: Yes Hx Coronary Artery / Peripheral Vascular Disease: Yes Hx CHF / Valvular Disease: No Hx Palpitations: No - Pulmonary History Hx COPD: No Hx Asthma/Reactive Airway Disease: No Hx Recent Upper Respiratory Infection: No Hx Oxygen in Use at Home: No Hx Sleep Apnea: No - Neurologic History Hx Cerebrovascular Accident: No Hx Seizures: No Hx Dementia: No - Endocrine History Hx Diabetes: No Hypothyroid: No Hyperthyroid: No Obesity: no - Renal History Hx Renal Disorders: No - Liver History Hx Hepatic Disorders: No - Chronic Pain History Chronic Pain: No ANE Review of Systems Review of Systems: - Exercise capacity Exercise capacity: <4 METS ANE Patient History - Allergies Allergies/Adverse Reactions: Penicillins Allergy (Severe, Verified 02/10/19 21:19) Rash tetracycline [Tetracycline] Allergy (Mild, Verified 02/10/19 21:19) Rash pseudoephedrine [Pseudoephedrine] Allergy (Unknown, Verified 02/10/19 21:19) Other-Enter Comments cefuroxime axetil [From Ceftin] Allergy (Verified 02/10/19 21:19) Other-Enter Comments dextromethorphan [From Delsym] Allergy (Verified 02/10/19 21:19) Other-Enter Comments tramadol HCl [From Ultram] Allergy (Verified 02/10/19 21:19) Other-Enter Comments ZPACK Allergy (Uncoded 02/10/19 21:19) Other-Enter Comments - Home Medications Home medications: home medication list seen and reviewed Home Medications: Allopurinol [Allopurinol 300 MG (RX)] 300 mg PO DAILY 02/04/10 [Last Taken 02/10] Aspirin [Aspirin 81mg (*)] 81 mg PO DAILY 02/04/10 [Last Taken 02/10/19] Losartan Potassium 100 mg PO DAILY 02/09/19 [Last Taken 02/10/19] Psyllium Husk (with Sugar) [Metamucil Packet] 1 - 2 each PO DAILY PRN 02/09/19 [ Last Taken 02/10/19] Atorvastatin Calcium [Lipitor 20 mg (*)] 20 mg PO DAILY 02/10/19 [Last Taken ] - NPO status NPO Status: no food or drink >8 hours - Anes Hx Anes Hx: no prior problems - Smoking Hx Smoking Status: Former smoker - Alcohol Use Alcohol Use: None ANE Labs/Vital Signs - Vital Signs Blood Pressure: 125/81 Heart Rate: 74 Respiratory Rate: 16 O2 Sat (%): 96 Height: 175.26 cm Weight: 85.6 kg ANE Physical Exam - Airway Mallampati Score: Class 2 Mouth exam: normal dental/mouth exam - Pulmonary Pulmonary: no respiratory distress - Cardiovascular Cardiovascular: regular rate and rhythym - ASA Status ASA Status: III ANE Anesthesia Plan Anesthesia Plan: GA with mask
--- NOTE | 2019-02-11 09:18 | PDTEE1 ---
SANDY Cardioversion Procedure Procedure: electrical cardioversion, transesophageal echo Indications: atrial fibrillation, cardiomyopathy Consent: signed and in chart Anticoagulation: eliquis Procedural Details: Pads were placed in anterior-posterior position. SANDY probe was advanced and standard images obtained. There is no evidence of left atrial or left atrial appendage thrombus. Synchronized cardioversion attempt #1: 200J Results: normal sinus rhythm Conclusions: successful SANDY cardioversion (Reassessment of LV ejection fraction post cardioversion as an outpatient) Patient Problems: Problems Problem Status Onset Atrial fibrillation Acute Premature supraventricular beat Acute
--- NOTE | 2019-02-11 09:21 | POSTANESTH ---
Post Anesthetic Evaluation Cardiovascular Status: Normal, Stable Respiratory Status: Normal, Stable Level of Consciousness/Mental Status: Can Participate in Eval Pain Control: Adequate, Prn Tx Ordered Nausea/Vomiting Control: Adequate, Prn Tx Ordered Complications Possibly Related to Anesthesia: None Noted
--- NOTE | 2019-02-11 09:54 | ASMTCASEMG ---
Living Arrangements What is your living Answers: With Spouse arrangement? Who do you live with? Type Of Residence What kind of residence do Answers: House you live in? Discharge Plan Comments Coordination Status Comments Notes: Pt was D/Cd from the hospital yesterday but returned to the ED at night with heart palpitations. This morning he had cardioversion by Dr. Jacobo. Pt lives at home with his and is normally independent in his ADLs. No therapies have been ordered. CM will be available should needs arise. CM D/C plan: Independent to home Date Signed: 02/11/2019 09:53 AM Electronically Signed By:Reyna Felming
--- NOTE | 2019-02-11 09:58 | ASMTLACE ---
DARIO Comorbidities - select Answers: Coronary Artery Disease all that apply # of Emergency department Answers: 1-2 visits in the last 6 months Score: 3 Date Signed: 02/11/2019 09:57 AM Electronically Signed By:Reyna Fleming
[2019-02-11] MEDS: APIXABAN 5 MG TAB PO SCH (10:25)
--- NOTE | 2019-02-11 12:29 | ECHO ---
[email or web address] [address] [address] Main: [phone] Echocardiography Examination Transthoracic Name: CHRIS MAURICIO MR#: [id number] Study Date: 02/11/2019 Study Time: 08:56 AM Date of : 1935 Age: 83 year(s) Height: ( ) Weight: ( ) BSA: Gender: Male Examination: Echo Contrast: Image Quality: Rhythm: Heart Rate: BP: / Indication: Pre Cardioversion Procedure Staff Referring Physician: Scouring Pads Supervisor: Daniel Medina RDCS Reading Physician: Barrett Jacobo MD Requesting Provider: Ordering Physician: Quita Corona Indication: Pre Cardioversion Conclusions Transesophageal echocardiogram. LVEF 40%. Moderate MR, mild to moderate AI, moderate TR. No thrombus in ABRAHAM/LA/LV. No shunt. Findings Left Ventricle: Left ventricle is dilated. The EF is visually estimated to be 40 %. Left Atrium Appendage: Good color flow doppler in the left atrial appendage. IAS: An agitated saline study was performed and was negative for intracardiac shunting. Mitral Valve: Moderate mitral regurgitation. Aortic Valve: Mild to moderate aortic regurgitation is present. Tricuspid Valve: Moderate tricuspid regurgitation. Pericardium: No pericardial effusion. Patient: CHRIS MAURICIO Study Date: 02/11/2019 Page 1 of 2 08:56 AM Exam Details Procedure Ordered: Echo (No Signature Object) Patient: CHRIS MAURICIO Study Date: 02/11/2019 Page 2 of 2 08:56 AM [id number]
[2019-02-11 15:21] VITALS: BP 122/74
--- NOTE | 2019-02-11 15:46 | ASDISCHSUM ---
Discharge Information Plan Status:Home with No Needs Medically Cleared to Leave: Discharge Date: D/C Disposition: ADT D/C Disposition: Projected Discharge Date: Transportation at D/C: Discharge Delay Reason: Follow-Up Date: Discharge Slot: Final Diagnosis: Placement Information Patient Contact Information Contact Name:MARC Relationship: Address:[address] City:[place] Alternate Phone: State/Zip Code:[place] [address] Email: Financial Information Financial Class:Medicare Primary Plan Desc:MEDICARE OUTPATIENT Primary Plan Number:[id number] Secondary Plan Desc:[facility] Secondary Plan Number:[id number] Assessment Information [facility] Initial CM Assessment Living Arrangements What is your living Answers: With Spouse arrangement? Who do you live with? Type Of Residence What kind of residence do Answers: House you live in? Discharge Plan Comments Coordination Status Comments Notes: Pt was D/Cd from the hospital yesterday but returned to the ED at night with heart palpitations. This morning he had cardioversion by Dr. Jacobo. Pt lives at home with his and is normally independent in his ADLs. No therapies have been ordered. CM will be available should needs arise. CM D/C plan: Independent to home Date Signed: 02/11/2019 09:53 AM Electronically Signed By:Reyna Fleming LACE LACE Comorbidities - select Answers: Coronary Artery Disease all that apply # of Emergency department Answers: 1-2 visits in the last 6 months Score: 3 Date Signed: 02/11/2019 09:57 AM Electronically Signed By:Reyna Fleming Case Management Discharge Plan Note Case Management Discharge Discharge Order Complete? Answers: Yes Patient to Obtain Answers: via Family Medications Transportation Arranged Answers: Family/Friends Family Notified Answers: Yes Notes: Discharge Comments Notes: Pt is being D/Cd home today with no needs. will drive him. Date Signed: 02/11/2019 03:45 PM Electronically Signed By:Reyna Fleming Intervention Information Intervention Type:*IM-Signed Date of Service:02/11/2019 10:01 AM Patient Type:Observation Staff Member:Reyna Fleming Hours: Discipline: Severity: Comment:Copy given to Intervention Type:*CORRAL-Signed Date of Service:02/11/2019 11:04 AM Patient Type:Observation Staff Member:Reyna Fleming Hours: Discipline: Severity: Comment:copy given to
--- NOTE | 2019-02-11 15:50 | PDDCSUM ---
Discharge Summary Discharge Summary: Date of Admission: 02/10/2019 Date of Discharge: 02/11/2019 COnsults: Cardiology Procedures: SANDY DCCV Followup: Cardiology, PCP Hospital Course Problem List: 83 yo M with pmhx significant for CAD s/p CABG, afib with history of cardioversion, gout, DM II, HTN, HLD ischemic cardiomyopathy (EF 35% 01/2019), moderate MR who presents to [facility] with c/o palpitations and anxiety. #Atrial fibrillation - rate controlled. cardiology consulted, s/p SANDY with DCCV on morning of admission with Dr. Jacobo. He recommends to continued Eliquis for lifelong. 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 #HLD - statin #benign essential HTN - losartan #gout - allopurinol
--- NOTE | 2019-02-16 11:06 | CPEKG ---
Test Reason : OPEN Blood Pressure : / mmHG Vent. Rate : 062 BPM Atrial Rate : 000 BPM P-R Int : 195 ms QRS Dur : 129 ms QT Int : 495 ms P-R-T Axes : 007 -41 -71 degrees QTc Int : 503 ms Sinus bradycardia Multiple premature complexes, vent & supraven Left bundle branch block Confirmed by Peter Banks ([id number]) on 02/16/2019 11:06:14 AM Referred By: Quita Corona Confirmed By:Peter Banks
== END 2019-02-11 16:17 | disposition home or self-care (01) ==
LOC: F2W 22:20
PROVIDERS: ADMIT Internal Medicine; ATTEND Internal Medicine
PROC: B245ZZ4 Ultrasonography of Left Heart, Transesophageal (ICD-10-PCS; principal; 2019-02-10)
PROC: 5A2204Z Restoration of Cardiac Rhythm, Single (ICD-10-PCS; principal; 2019-02-10)
DX: I48.0 Paroxysmal atrial fibrillation (principal); I25.10 Atherosclerotic heart disease of native coronary artery without angina pectoris; I10 Essential (primary) hypertension; E11.9 Type 2 diabetes mellitus without complications; E78.5 Hyperlipidemia, unspecified; I25.5 Ischemic cardiomyopathy; I34.0 Nonrheumatic mitral (valve) insufficiency; M10.9 Gout, unspecified; Z95.1 Presence of aortocoronary bypass graft
CPT/HCPCS: 93312; 96360; 99285; G0378; J2704; 84484-ER